=== PATIENT | male | born 1955 | race Caucasian/White ===

== ENCOUNTER 2017-04-23 09:49 | Emergency (ER) | payer MEDICAID ==
[2017-04-23] MEDS ORDERED: Nitroglycerin 0.4 MG Tab.SL SL ONE (10:00)
--- NOTE | 2017-04-23 10:08 | EDM.PDOC ---
[id number] 4d CHEST PAIN Time Seen by Provider: 04/23/17 09:50 Source of Information: Reports: Patient History Limitations: Reports: No Limitations - History of Present Illness INITIAL COMMENTS - FREE TEXT/NARRATIVE: 61-year-old male with subtle substernal chest pain that has been intermittent over the past several months but seemed somewhat worse this morning and more persistent so he came in to have it checked. He also had some nausea and generalized malaise, he's been very fatigued. No diaphoresis. He has an ulcer and attributed the discomfort to the ulcer. Does not seem to be related to activity. He had an angiogram over 10 years ago that was normal, after a stress test was "abnormal". He now still has some very subtle but persistent pain substernally. He took 1 baby aspirin, he is not given additional aspirin at this time because of the known gastric ulcer and the atypical presentation. No fevers or chills, no cough, no shortness of breath. 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 (1 low-dose aspirin this morning) Chest Pain Score (Numeric/FACES): 4 - Related Data Allergies Allergy/AdvReac Type Severity Reaction Status Date / Time No Known Allergies Allergy Verified 09/05/15 05:28 Home Meds: Home Meds Alpha Lipoic Acid 200 mg PO DAILY 09/16/14 [History] Aspirin [Low Dose Aspirin EC] 81 mg PO DAILY 09/16/14 [History] Cholecalciferol (Vitamin D3) [Vitamin D3] 5,000 unit PO DAILY 09/16/14 [History] Flaxseed 2 tsp PO DAILY 09/16/14 [History] [place]-3 Fatty Acids [[place]-3] 2,000 mg PO DAILY 09/16/14 [History] Tadalafil [Cialis] 20 mg PO DAILY PRN 09/16/14 [History] Valsartan [Diovan] 160 mg PO DAILY 09/16/14 [History] Pantoprazole Sodium [Protonix] 40 mg PO DAILY 04/23/17 [History] Past Medical History Cardiovascular History: Reports: Hypertension Gastrointestinal History: Reports: PUD Endocrine/Metabolic History: Reports: Obesity/BMI 30+ - Past Surgical History GI Surgical History: Reports: Appendectomy, EGD Musculoskeletal Surgical History: Reports: Arthroscopic Procedure Social & Family History - Tobacco Use Smoking Status *Q: Never Smoker - Caffeine Use Caffeine Use: Reports: Soda - Alcohol Use Days Per Week of Alcohol Use: 2 Number of Drinks Per Day: 2 Total Drinks Per Week: 4 - Recreational Drug Use Recreational Drug Use: No ED ROS GENERAL - Review of Systems Review Of Systems: See Below Constitutional: Reports: Malaise, Fatigue. Denies: Fever, Chills HEENT: Reports: No Symptoms Respiratory: Denies: Shortness of Breath, Cough Cardiovascular: Reports: Chest Pain. Denies: Palpitations GI/Abdominal: Denies: Abdominal Pain, Nausea, Vomiting : Reports: No Symptoms Skin: Reports: No Symptoms Neurological: Reports: No Symptoms Psychiatric: Reports: No Symptoms ED EXAM, GENERAL - Physical Exam Exam: See Below Exam Limited By: No Limitations General Appearance: Alert, No Apparent Distress Eye Exam: Bilateral Eye: Normal Inspection Neck: Supple Respiratory/Chest: No Respiratory Distress, Lungs Clear Cardiovascular: Regular Rate, Rhythm GI/Abdominal: Normal Bowel Sounds, Soft, Tender (Small amount of tenderness in the left lower quadrant, no guarding) Extremities: Normal Inspection. No: Pedal Edema Neurological: Alert, Oriented, No Motor/Sensory Deficits Psychiatric: Normal Affect, Normal Mood Skin Exam: Warm, Dry EKG INTERPRETATION Rhythm: NSR Comparison: No Change (No change from an EKG in September 2015) Course - Vital Signs Last Recorded V/S: Last Vital Signs Temp 98.2 F 04/23/17 09:59 Pulse 55 L 04/23/17 10:30 Resp 16 04/23/17 10:30 BP 126/80 04/23/17 10:30 Pulse Ox 98 04/23/17 10:30 - Orders/Labs/Meds Orders: Active Orders 24 hr Category Date Time Status EKG Documentation Completion [RC] ASDIRECTED Care 04/23/17 10:00 Active EKG 12 Lead [EK] Routine Ther 04/23/17 09:59 Ordered Labs: Laboratory Tests 04/23/17 04/23/17 Range/Units 10:10 10:10 WBC 4.5 (4.5-11.0) K/uL RBC 5.28 (4.30-5.90) M/uL Hgb 15.5 H (12.0-15.0) g/dL Hct 45.5 (40.0-54.0) % MCV 86 (80-98) fL MCH 29 (27-31) pg MCHC 34 (32-36) % Plt Count 178 (150-400) K/uL Neut % (Auto) 63 (36-66) % Lymph % (Auto) 27 (24-44) % [place] % (Auto) 8 H (2-6) % Eos % (Auto) 2 (2-4) % Baso % (Auto) 1 (0-1) % Sodium 136 L (140-148) mmol/L Potassium 4.3 (3.6-5.2) mmol/L Chloride 103 (100-108) mmol/L Carbon Dioxide 30 (21-32) mmol/L Anion Gap 7.3 (5.0-14.0) mmol/L BUN 16 (7-18) mg/dL Creatinine 1.3 (0.8-1.3) mg/dL Est Cr Clr Drug Dosing 63.93 mL/min Estimated GFR (MDRD) 56 L (>60) Glucose 103 (74-106) mg/dL Calcium 9.3 (8.5-10.1) mg/dL Total Bilirubin 2.5 H D (0.2-1.0) mg/dL AST 14 L (15-37) U/L ALT 21 (12-78) U/L Alkaline Phosphatase 37 L (46-116) U/L Troponin I < 0.017 (0.000-0.056) ng/mL Total Protein 7.2 (6.4-8.2) g/dL Albumin 3.8 (3.4-5.0) g/dL Globulin 3.4 (2.3-3.5) g/dL Albumin/Globulin Ratio 1.1 L (1.2-2.2) Meds: Medications Discontinued Medications Generic Name Dose Route Start Last Admin Trade Name Freq PRN Reason Stop Dose Admin Nitroglycerin 0.4 mg 04/23/17 10:00 04/23/17 10:06 Nitrostat SL 04/23/17 10:01 0.4 mg ONETIME ONE Administration - Re-Assessments/Exams Free Text/Narrative Re-Assessment/Exam: 04/23/17 10:14 No additional aspirin was given because of the gastric ulcer history. The EKG was unchanged from previous EKGs but he was given a sublingual nitroglycerin and he thinks a small amount of discomfort he had resolved. CBC, CMP and troponin were obtained. 04/23/17 11:04 Troponin is 0, CBC is negative. Bilirubin is slightly elevated but has been in the past. Patient will be set up for a stress test in the near future with results sent to his primary care provider. Departure - Departure Time of Disposition: 11:19 Disposition: Home, Self-Care 01 Condition: Good Clinical Impression: Atypical chest pain - Discharge Information Instructions: Nonspecific Chest Pain, [id number] Referrals: PCP,None [Primary Care Provider] - Forms: ED Department Discharge Care Plan Goals: Stress test as planned. Return any time if you feel you are worsening or need further evaluation or treatment. - My Orders Last 24 Hours: My Active Orders 04/23/17 09:59 EKG 12 Lead [EK] Routine 04/23/17 10:00 EKG Documentation Completion [RC] ASDIRECTED - Assessment/Plan Last 24 Hours: My Active Orders 04/23/17 09:59 EKG 12 Lead [EK] Routine 04/23/17 10:00 EKG Documentation Completion [RC] ASDIRECTED
[2017-04-23 10:32] VITALS: BP 126/80
== END 2017-04-23 11:20 | disposition home or self-care (01) ==
LOC: JP.ED 09:49
DX: R07.89 Other chest pain (principal); I10 Essential (primary) hypertension; E66.9 Obesity, unspecified; Z68.31 Body mass index [BMI] 31.0-31.9, adult; Z90.49 Acquired absence of other specified parts of digestive tract; Z98.890 Other specified postprocedural states; Z79.82 Long term (current) use of aspirin; Z79.899 Other long term (current) drug therapy
CPT/HCPCS: 36415; 80053; 84484; 85025; 93005; 99285; A9270

== ENCOUNTER 2018-12-07 12:32 | Emergency (ER) | payer MEDICARE, BC ==
--- NOTE | 2018-12-07 13:55 | EDM.PDOC ---
ED HPI GENERAL MEDICAL PROBLEM - General Chief Complaint: Cardiovascular Problem Stated Complaint: HIGH HEART RATE Time Seen by Provider: 12/07/18 13:55 Source of Information: Reports: Patient History Limitations: Reports: No Limitations - History of Present Illness INITIAL COMMENTS - FREE TEXT/NARRATIVE: pt arrived with a history of his heart racing after he [place]. He had slight burning accross his chest when he walks . This is not severe Pt did not have chest pain today. Onset: Today, Other ( started after all of the physixcal activity) Duration: Hour(s): Location: Reports: Chest Associated Symptoms: Reports: No Other Symptoms denies Pain Score (Numeric/FACES): 0 - Related Data Allergies Allergy/AdvReac Type Severity Reaction Status Date / Time No Known Allergies Allergy Verified 12/07/18 13:04 Home Meds: Home Meds Aspirin [Low Dose Aspirin EC] 81 mg PO DAILY 09/16/14 [History] Cholecalciferol (Vitamin D3) [Vitamin D3] 5,000 unit PO DAILY 09/16/14 [History] Flaxseed 2 tsp PO DAILY 09/16/14 [History] [place]-3 Fatty Acids [[place]-3] 2,000 mg PO DAILY 09/16/14 [History] Tadalafil [Cialis] 20 mg PO DAILY PRN 09/16/14 [History] Pantoprazole Sodium [Protonix] 40 mg PO DAILY 04/23/17 [History] Melatonin 5 mg PO DAILY 12/07/18 [History] Telmisartan 40 mg PO DAILY 12/07/18 [History] Past Medical History Cardiovascular History: Reports: Hypertension Gastrointestinal History: Reports: PUD Endocrine/Metabolic History: Reports: Obesity/BMI 30+ - Past Surgical History Cardiovascular Surgical History: Reports: None GI Surgical History: Reports: Appendectomy, EGD Musculoskeletal Surgical History: Reports: Arthroscopic Procedure Social & Family History - Tobacco Use Smoking Status *Q: Never Smoker - Caffeine Use Caffeine Use: Reports: Soda - Recreational Drug Use Recreational Drug Use: No ED ROS GENERAL - Review of Systems Review Of Systems: See Below Constitutional: Reports: No Symptoms, Malaise, Weakness HEENT: Reports: No Symptoms Respiratory: Reports: No Symptoms Cardiovascular: Reports: Palpitations, Other (pt had palitations. He has ahistory of slight chest curning when he walks. ) GI/Abdominal: Reports: No Symptoms : Reports: No Symptoms Musculoskeletal: Reports: No Symptoms Skin: Reports: No Symptoms Neurological: Reports: No Symptoms Psychiatric: Reports: No Symptoms ED EXAM, GENERAL - Physical Exam Exam: See Below Free Text/Narrative:: pt is alert and is not having discomfort at this time. He does admit that he does get very fatiqued and wakes up not feeling rested. Exam Limited By: No Limitations General Appearance: Alert, No Apparent Distress, Anxious Ears: Normal TMs Nose: Normal Inspection Throat/Mouth: Normal Inspection Head: Atraumatic Neck: Normal Inspection Respiratory/Chest: No Respiratory Distress Cardiovascular: Regular Rate, Rhythm, Other ( rate is 70. ) GI/Abdominal: Soft, Non-Tender (Male) Exam: Deferred Rectal (Males) Exam: Deferred Back Exam: Normal Inspection Extremities: Normal Inspection Neurological: Alert, Oriented, Normal Cognition Psychiatric: Normal Affect Course - Vital Signs Last Recorded V/S: Last Vital Signs Temp 35.1 C L 12/07/18 12:59 Pulse 62 12/07/18 15:00 Resp 12 12/07/18 15:00 BP 153/83 H 12/07/18 15:00 Pulse Ox 96 12/07/18 15:00 - Orders/Labs/Meds Orders: Active Orders 24 hr Category Date Time Status EKG Documentation Completion [RC] ASDIRECTED Care 12/07/18 13:54 Active EKG 12 Lead [EK] Routine Ther 12/07/18 13:54 Ordered Labs: Laboratory Tests 12/07/18 12/07/18 12/07/18 Range/Units 13:54 13:54 13:54 WBC 5.8 (4.5-11.0) K/uL RBC 5.02 (4.30-5.90) M/uL Hgb 14.8 (12.0-15.0) g/dL Hct 43.3 (40.0-54.0) % MCV 86 (80-98) fL MCH 30 (27-31) pg MCHC 34 (32-36) % Plt Count 171 (150-400) K/uL Neut % (Auto) 67 H (36-66) % Lymph % (Auto) 24 (24-44) % [place] % (Auto) 8 H (2-6) % Eos % (Auto) 1 L (2-4) % Baso % (Auto) 0 (0-1) % Sodium 138 L (140-148) mmol/L Potassium 4.7 (3.6-5.2) mmol/L Chloride 104 (100-108) mmol/L Carbon Dioxide 28 (21-32) mmol/L Anion Gap 10.7 (5.0-14.0) mmol/L BUN 17 (7-18) mg/dL Creatinine 1.2 (0.8-1.3) mg/dL Est Cr Clr Drug Dosing 67.36 mL/min Estimated GFR (MDRD) > 60 (>60) Glucose 99 (74-106) mg/dL Calcium 9.1 (8.5-10.1) mg/dL Total Bilirubin 1.7 H (0.2-1.0) mg/dL AST 15 (15-37) U/L ALT 22 (12-78) U/L Alkaline Phosphatase 42 L (46-116) U/L Troponin I < 0.017 (0.000-0.056) ng/mL Total Protein 6.8 (6.4-8.2) g/dL Albumin 3.7 (3.4-5.0) g/dL Globulin 3.1 (2.3-3.5) g/dL Albumin/Globulin Ratio 1.2 (1.2-2.2) Urine Color Yellow Urine Appearance Clear Urine pH 6.0 (4.5-8.0) Ur Specific [place] 1.010 (1.008-1.030) Urine Protein Negative (NEGATIVE) mg/dL Urine Glucose (UA) Normal (NEGATIVE) mg/dL Urine Ketones Negative (NEGATIVE) mg/dL Urine Occult Blood Negative (NEGATIVE) Urine Nitrite Negative (NEGAITVE) Urine Bilirubin Negative (NEGATIVE) Urine Urobilinogen Normal (NORMAL) mg/dL Ur Leukocyte Esterase Negative (NEGATIVE) Urine RBC Not seen (0-5) Urine WBC Not seen (0-5) Ur Epithelial Cells Not seen Amorphous Sediment Many Urine Bacteria Not seen Urine Mucus Not seen - Re-Assessments/Exams Free Text/Narrative Re-Assessment/Exam: 12/07/18 15:22 ekg did show some possible old inferior changes. There was no acute findings. His trop was normal. His other labs looked good. Departure - Departure Time of Disposition: 15:15 Disposition: Home, Self-Care 01 Condition: Fair Clinical Impression: Tachycardia, Chest pain, Heart palpitations Instructions: Sinus Tachycardia Referrals: Newton Lanier MD [Primary Care Provider] - Forms: ED Department Discharge Care Plan Goals: rtc for cardilyte--exercise, 48 hour holter monitor. Pt should exercise while he has this on. Order for Holter monitor sent to [facility], they will contact you with a time for setting it up. Exercise cardiolyte scheduled for December 09 at 0815. - My Orders Last 24 Hours: My Active Orders 12/07/18 13:54 EKG Documentation Completion [RC] ASDIRECTED EKG 12 Lead [EK] Routine - Assessment/Plan Last 24 Hours: My Active Orders 12/07/18 13:54 EKG Documentation Completion [RC] ASDIRECTED EKG 12 Lead [EK] Routine
[2018-12-07 15:20] VITALS: BP 153/83
== END 2018-12-07 15:52 | disposition home or self-care (01) ==
LOC: JP.ED 12:32
DX: R00.0 Tachycardia, unspecified (principal); R00.2 Palpitations; R07.9 Chest pain, unspecified; I10 Essential (primary) hypertension; Z79.899 Other long term (current) drug therapy; Z79.82 Long term (current) use of aspirin
CPT/HCPCS: 36415; 80053; 81001; 84484; 85025; 93005; 99285-25

== ENCOUNTER 2025-04-01 13:41 | Emergency (ER) | payer MEDICARE, BC ==
[2025-04-01 15:07] VITALS: BP 129/73; PULSE 61
== END 2025-04-01 15:42 | disposition home or self-care (01) ==
LOC: JP.ED 13:41
DX: R07.89 Other chest pain (principal); R20.2 Paresthesia of skin; E78.00 Pure hypercholesterolemia, unspecified; I10 Essential (primary) hypertension; Z79.82 Long term (current) use of aspirin; Z79.899 Other long term (current) drug therapy
CPT/HCPCS: 36415; 84484; 93005; 99285